=== PATIENT | male | born 1935 | race Caucasian/White ===

== ENCOUNTER → 2017-11-04 | Outpatient (CLI) | payer OTHER ==
[~2017-11-04] MED LIST: ALIGN4 MG PO; FISH OIL PO; TYLENOL PO; VITAMIN B-12 INJ; VITAMIN B-12 PO; VITAMIN D-3 PO; VITAMIN E PO
== END ==
LOC: RAD 11:31
PROVIDERS: ATTEND Family Medicine
DX: R07.1 Chest pain on breathing (principal); R01.1 Cardiac murmur, unspecified
CPT/HCPCS: 93306